=== PATIENT | female | born 1955 | race Hispanic/Latino ===

== ENCOUNTER → 2017-09-27 | Outpatient (CLI) | payer OTHER ==
[~2017-09-27] MED LIST: ASPI-1012 PO; CALC600T12 PO; CHOL20004 PO; CITA-106 PO; ESOM40CA54 PO; ETAN50PE SQ; EZET10TA26 PO; FLUT1DIS3 IH; FOLI0.8C PO; HYDR-309 PO; METO25TA6 PO; OMEG-148 PO; POTA-79 PO; PRAV40TA3 PO; PRED2.5T PO; PREMC VG; TRAM50TA4 PO; aripiprazole PO; natural tears OU
== END | disposition home or self-care (01) ==
LOC: RAH 12:43
PROVIDERS: ATTEND Family Medicine
DX: N64.4 Mastodynia (principal); R92.2 Inconclusive mammogram
CPT/HCPCS: 76641; 77066

== ENCOUNTER 2018-04-25 08:35 | Day surgery (SDC) | payer OTHER ==
[2018-04-23 15:03] LABS: BASOPHILS % (AUTO) 0.3 % (0.0-5.0); EOSINOPHILS % (AUTO) 2.5 % (0.0-8.0); HEMATOCRIT 37.6 % (36-48); LYMPHOCYTES % (AUTO) 19.9 % (21.0-51.0); MEAN CORPUSCULAR HEMOGLOBIN 25.7 pg (27.0-33.0); MEAN CORPUSCULAR HGB CONC 32.2 g/dL (32.0-36.0); MEAN CORPUSCULAR VOLUME 80.1 fL (79-99); MONOCYTES % (AUTO) 5.4 % (3.0-13.0); NEUTROPHILS % (AUTO) 71.9 % (40.0-77.0); NUCLEATED RED BLOOD CELLS 0.1 % (0.0-0.19); PLATELET COUNT (AUTO) 238 K/uL (130-400); RED BLOOD CELL COUNT(AUTO) 4.69 MIL/uL (4.00-5.50); RED CELL DISTRIBUTION WIDTH 16.7 % (11.0-15.5); WHITE BLOOD COUNT (AUTO) 5.6 K/uL (4.8-10.8)
[2018-04-23 15:07] VITALS: BP 126/64
[2018-04-23 15:13] LABS: CREATININE 0.8 mg/dL (0.5-1.5); POTASSIUM 4.3 mmol/L (3.5-5.1)
[2018-04-23 15:16] LABS: BILIRUBIN,URINE Negative (NEGATIVE); COLOR,URINE Yellow (YELLOW); GLUCOSE, URINE (UA) Negative (NEGATIVE); KETONES,URINE Negative (NEGATIVE); LEUKOCYTE ESTERASE ,URINE Small (NEGATIVE); NITRATE,URINE Negative (NEGATIVE); OCCULT BLOOD,URINE Negative (NEGATIVE); PROTEIN,URINE Negative (NEGATIVE); UROBILINOGEN,URINE 0.2 mg/dL (0.2-1.0)
[2018-04-23 15:23] LABS: APPEARANCE,URINE SLIGHTLY CLOUDY (CLEAR)
[2018-04-23 15:38] LABS: BACTERIA,URINE Rare /HPF (None Seen); RBC,URINE 0-1 /HPF (0-1)
[2018-04-23 15:39] LABS: SQUAMOUS EPITHELIAL CELL,UR Rare /HPF (0-2)
[~2018-04-25] VITALS: Ht 146.1 cm; Wt 97.6 kg
[2018-04-25] VITALS (19 sets, daily range): BP systolic 127–192; BP diastolic 64–86
[~2018-04-25 08:35] MED LIST changes: +ARIP2TAB11 PO; -ASPI-1012 PO; -CALC600T12 PO; +CEFAZOLIN 3GM /D5W 100ML 100 ML IV SCH; -CHOL20004 PO; +DULO60CA63 PO; -ESOM40CA54 PO; -ETAN50PE SQ; -HYDR-309 PO; +IBAN150T8 PO; +LACTATED RINGERS 1000ML 1,000 ML IV SCH; +MV-M1TAB20 PO; -PREMC VG; -aripiprazole PO
[2018-04-25] MEDS ORDERED: CEFAZOLIN SODIUM 1 GM VIAL ONE ×2 (09:16→10:03)
[2018-04-25] MEDS ORDERED: MIDAZOLAM HCL 1 MG/ML 2ML VIAL ONE (09:41)
[2018-04-25] MEDS ORDERED: SUCCINYLCHOLINE 200MG/10ML SYR ONE (09:41)
[2018-04-25] MEDS ORDERED: LIDOCAINE PF 2% 5ML ABBOJECT ONE (09:41)
[2018-04-25] MEDS ORDERED: DEXAMETHASONE SOD PHOSPHATE 10MG/ML 1ML VIAL ONE (09:41)
[2018-04-25] MEDS ORDERED: PROPOFOL 10 MG/ML 20ML VIAL IV ONE (09:42)
[2018-04-25] MEDS ORDERED: ROCURONIUM 10MG/1ML SYR 10 MG/ML ML ONE (09:42)
[2018-04-25] MEDS ORDERED: GLYCOPYRROLATE 1 MG/5 ML SYRINGE ONE (09:42)
[2018-04-25] MEDS ORDERED: ONDANSETRON HCL 4 MG/2 ML VIAL ONE (09:42)
[2018-04-25] MEDS ORDERED: NEOSTIGMINE 5MG/5ML SYR IV ONE (09:42)
[2018-04-25] MEDS ORDERED: EPHEDRINE SULFATE 50 MG/ML AMPULE ONE (10:13)
[2018-04-25] MEDS ORDERED: BUPIVACAINE/PF 0.25% 30ML VIAL IJ ONE (10:15)
[2018-04-25] MEDS ORDERED: MEPERIDINE-PF 25 MG/ML SYG ONE ×2 (11:34→11:45)
== END 2018-04-25 13:30 | disposition home or self-care (01) ==
LOC: DAH 08:35
PROVIDERS: ATTEND Surgery
DX: K43.0 Incisional hernia with obstruction, without gangrene (principal); Z90.49 Acquired absence of other specified parts of digestive tract; Z98.890 Other specified postprocedural states; I10 Essential (primary) hypertension; E66.01 Morbid (severe) obesity due to excess calories
CPT/HCPCS: 36415; 49561; 49568; 80048; 81001; 85025; 88302; 93005; A4450; A4452; A4606; C1781; J0330; J0690 ×3; J1100; J2001; J2175 ×2; J2250; J2405; J2704; J2710; J3490 ×3; J7120 ×3

== ENCOUNTER → 2018-11-01 | Outpatient (CLI) | payer OTHER ==
[~2018-11-01] MED LIST changes: -CEFAZOLIN 3GM /D5W 100ML 100 ML IV SCH; -EZET10TA26 PO; +EZET10TA48 PO; -LACTATED RINGERS 1000ML 1,000 ML IV SCH
== END | disposition home or self-care (01) ==
LOC: RAH 14:03
PROVIDERS: ATTEND Family Medicine
DX: Z12.31 Encounter for screening mammogram for malignant neoplasm of breast (principal)
CPT/HCPCS: 77067

== ENCOUNTER → 2019-11-10 | Outpatient (CLI) | payer OTHER ==
[~2019-11-10] MED LIST changes: -ARIP2TAB11 PO; +ARIP2TAB20 PO; -DULO60CA63 PO; +DULO60CA64 PO; +IBAN150T21 PO; -IBAN150T8 PO
== END | disposition home or self-care (01) ==
LOC: RAH 10:09
PROVIDERS: ATTEND Family Medicine
DX: Z12.31 Encounter for screening mammogram for malignant neoplasm of breast (principal)
CPT/HCPCS: 77067